=== PATIENT | male | born 1960 | race Caucasian/White ===

== ENCOUNTER 2019-05-31 07:47 | Observation (INO) ==
--- NOTE | 2019-05-24 14:27 | Anesthesiology Consultation ---
Date of Service May 24, 2019 Assessment & Plan (1) Encounter for pre-operative examination: Chart Review Chart Review: Acceptable Risk for Surgery and Patient NOT seen in Pre Admission Testing Consults Requested none History Surgery Operation Date: 05/31/19 07:00 Proposed Procedures p Laparoscopic Cholecystectomy - Jordan Gardner MD, FACS Height/Weight Height: 5 ft 9 in Weight: 83.915 kg Allergies Allergy/AdvReac Type Severity Reaction Status Date / Time procaine [From Novocain] Allergy Unknown Verified 05/03/19 07:13 Medications Home Medications Medication Instructions Recorded Confirmed Last Taken spironolactone 25 mg PO BID 01/29/19 05/03/19 01/29/19 07:00 spironolactone 100 mg PO BID 01/29/19 05/03/19 01/29/19 07:00 estradiol valerate 20 mg IM MONTHLY 05/03/19 05/03/19 Unknown estradiol valerate 20 mg IM UD 05/03/19 05/03/19 Unknown paroxetine HCl 20 mg PO DAILY 05/03/19 05/03/19 Unknown Past Medical History Medical History Alcohol use Back pain Borderline personality disorder Delusional disorder, erotomanic type Depressive disorder Gender dysphoria in adolescent and adult Nausea and vomiting after administration of anesthetic agent Past Surgical History Surgical History H/O right knee surgery Social History Smoking Status: Former smoker Hx Alcohol Use: Yes Testing Laboratory Results Laboratory Tests 01/29/19 01/29/19 17:54 17:54 WBC 9.61 Hgb 13.4 L Hct 38.1 L Plt Count 190 Sodium 135 L Potassium 4.2 Chloride 107 Carbon Dioxide 21 BUN 11 Creatinine 1.10 Glucose 102 H Electrocardiogram Date: 01/29/19 Findings: + NSR @ and + RBBB Chest X-Ray Date: 01/29/19 Findings: + NAD
--- NOTE | 2019-05-31 06:13 | History & Physical Report ---
Date of Service May 31, 2019 Assessment & Plan (1) Chronic cholecystitis with calculus: Patient is for laparoscopic cholecystectomy [facility] Observation History of Present Illness Primary Care Provider: SANIYA Laird Patient is for evaluation of gallbladder disease He is a transgender male goes by Darby Was seen in the emergency room abdominal pain nausea He was found with standard gallbladder multiple gallstones Allergies Allergy/AdvReac Type Severity Reaction Status Date / Time procaine [From Novocain] Allergy Unknown Verified 05/03/19 07:13 Home Medications Home Medications Medication Instructions Recorded Confirmed Type spironolactone 25 mg PO BID 01/29/19 05/03/19 History spironolactone 100 mg PO BID 01/29/19 05/03/19 History estradiol valerate 20 mg IM MONTHLY 05/03/19 05/03/19 History estradiol valerate 20 mg IM UD 05/03/19 05/03/19 History paroxetine HCl 20 mg PO DAILY 05/03/19 05/03/19 History Past Med/Surg History Medical History Alcohol use Back pain Borderline personality disorder Delusional disorder, erotomanic type Depressive disorder Gender dysphoria in adolescent and adult Nausea and vomiting after administration of anesthetic agent Surgical History H/O right knee surgery Social History 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 Current Living Situation Comment: [facility] Smoking Status: Former smoker Tobacco Cessation Education Requested by Patient: No Hx Alcohol Use: Yes Review of Systems All systems reviewed & are unremarkable except as noted in HPI & below Physical Exam Constitutional: well developed and well nourished; no acute distress Eyes: + anicteric sclerae Respiratory: normal respiratory effort; no respiratory distress Cardiovascular: Rate/Rhythm: regular rate Gastrointestinal (Abdomen): Percussion/Palpation: abdomen soft Musculoskeletal: Gait: normal gait Skin: no rashes, warm and dry Neurologic: awake Psychiatric: Orientation: alert
[~2019-05-31 07:47] MED LIST: LR 15ML/HR IV SCH; cefUROXime 1,500 MG in DEXTROSE 5% 100 ML IV SCH
[2019-05-31] MEDS ORDERED: LIDOCAINE HCL 2% 2 ML VIAL/AMP(20MG/ML) INFIL ONE (08:40)
[2019-05-31] MEDS ORDERED: CISATRACURIUM BESYLATE IV SOLN 2 MG/ML 10 ML VIAL IV ONE (08:40)
[2019-05-31] MEDS ORDERED: PROPOFOL IV EMULSION 10 MG/ML 20 ML VIAL IV ONE (08:40)
[2019-05-31] MEDS ORDERED: MIDAZOLAM HCL 1 MG/ML 2ML VIAL ONE (08:40)
[2019-05-31] MEDS ORDERED: fentaNYL citrate 100 MCG/2 ML VIAL ONE ×2 (08:40)
[2019-05-31] MEDS ORDERED: DEXAMETHASONE SOD INJ 4 MG/ML VIAL ONE (08:41)
[2019-05-31] MEDS ORDERED: ONDANSETRON INJ 2 MG/ML 2 ML VIAL ONE (08:41)
[2019-05-31] MEDS ORDERED: PROMETHAZINE HCL 12.5 MG in SODIUM CHLORIDE 0.9% 50 ML IV PRN ×2 (09:12→12:38)
[2019-05-31] MEDS ORDERED: FLUMAZENIL 0.1 MG/1 ML 10 ML VIAL IV PRN (09:12)
[2019-05-31] MEDS ORDERED: LABETALOL HCL IV 5 MG/ML 20ML IV PRN (09:12)
[2019-05-31] MEDS ORDERED: ATROPINE SULFATE 0.1 MG/ML 10ML SYR IV PRN (09:12)
[2019-05-31] MEDS ORDERED: HYDROmorphone INJ 1 MG/ML SYRINGE IV PRN (09:12)
[2019-05-31] MEDS ORDERED: ONDANSETRON INJ 2 MG/ML 2 ML VIAL IV PRN ×2 (09:12→12:38)
[2019-05-31] MEDS ORDERED: NALOXONE HCL 0.4 MG/1 ML VIAL/CARP IV PRN (09:12)
[2019-05-31] MEDS ORDERED: ePHEDrine sulfate 50 MG/ML AMP IV PRN (09:12)
[2019-05-31] MEDS ORDERED: BUPIVACAINE 0.5 % 5 MG/1 ML MPF 30ML VIAL ONE (09:25)
[2019-05-31] MEDS ORDERED: ACETAMINOPHEN 1000 MG/100 ML IV IV ONE (09:33)
[2019-05-31] MEDS ORDERED: GLYCOPYRROLATE 0.2 MG/ML VIAL ONE (10:14)
[2019-05-31] MEDS ORDERED: NEOSTIGMINE METHYLSULFATE 5 MG/5 ML SYR ONE (10:14)
[2019-05-31] MEDS ORDERED: LABETALOL HCL IV 5 MG/ML 20ML IV ONE (10:50)
[2019-05-31] MEDS ORDERED: ACETAMINOPHEN 1,000 MG/100 ML VIAL IV ONE (11:08)
--- NOTE | 2019-05-31 11:08 | Post Operative Brief Note ---
PG Immediate Post Op with CF Date of Surgery May 31, 2019 Pre & Post Diagnosis Operation Date: 05/31/19 09:40 Pre-Op Diagnosis: Chronic Cholecystitis Post-Op Diagnosis: Chronic Cholecystitis I identified the patient and participated in the time-out.: Yes Procedure Operation Date: 05/31/19 09:40 Actual Procedures p Laparoscopic Cholecystectomy(Not Applicable) - Jordan Gardner MD, FACS Surgeon Jordan Gardner MD, FACS Financial Analysis Manager Dov Bran Estimated Blood Loss 20 Findings Consistent with Post-Op Diagnosis Specimens Specimen Description: A. Gallbladder
[2019-05-31] MEDS ORDERED: PIPERACILL/TAZOBAC CONSULT ACTIVE PRN (11:16)
[2019-05-31] MEDS: fentaNYL citrate 100 MCG/2 ML VIAL IV PRN ×4 (11:43→11:58)
--- NOTE | 2019-05-31 12:08 | Anesthesiology Progress Note ---
Date of Service May 31, 2019 Anesthesia Post Procedure Vital Signs Vital Signs: Temp Pulse Pulse Resp BP Pulse Ox 05/31/19 12:00 36.1 C L 59 L 12 127/76 94 05/31/19 11:50 61 14 120/92 96 05/31/19 11:40 62 17 140/79 97 05/31/19 11:30 67 14 117/64 100 05/31/19 11:21 36.2 C L 74 14 110/70 97 05/31/19 08:49 36.7 C 63 18 118/76 100 Pain Intensity Abdomen: Pain Intensity: 4 Transfer of Care Handoff Completed per policy Notes Mental Status: alert / awake / arousable Patient Amnestic to Procedure: Yes Nausea / Vomiting: adequately controlled Pain: adequately controlled Airway Patency, RR, SpO2: stable & adequate BP & HR: stable & adequate Hydration State: stable & adequate Anesthetic Complications: no major complications apparent
--- NOTE | 2019-05-31 12:34 | Operative Report ---
DATE OF OPERATION: 05/31/2019 ADDENDUM OPERATION: Laparoscopic cholecystectomy. MANUFACTURING ASSEMBLER: Rajwinder Good. My construction project assistant helped with prepping, draping, removal of the gallbladder and closure of the wounds. I attest to the content of the Intraoperative Record and any orders documented therein. Any exception s are noted below.
--- NOTE | 2019-05-31 12:35 | Operative Report ---
DATE OF OPERATION: 05/31/2019 NAME OF OPERATION: Laparoscopic cholecystectomy. PREOPERATIVE DIAGNOSIS: Chronic cholecystitis. POSTOPERATIVE DIAGNOSIS: Chronic cholecystitis. STAFF SURGEON: Jordan Gardner MD. C CONSULTANT: Rajwinder Good. ANESTHESIA: General. DESCRIPTION OF PROCEDURE: The patient was brought in the operating room and placed on the operating table in supine position. His abdomen was prepped and draped in usual fashion. Pneumatic stockings, orogastric tube were placed. 0.5% plain Marcaine was used to anesthetize all incisions. Incision was made just above the umbilicus, carrying dissection down to the fascia, placing a Veress needle producing pneumoperitoneum. An 11 mm port was placed at this level and under visualization, three 5 mm ports were placed, 1 cephalad and 2 laterally. Gallbladder was very distended. It was difficult to grasp. I did attempt to aspirate the bile; however, it was very thick. The patient had some very small gallstones, 2 of which were aspirated. The site was grasped and then the gallbladder was retracted. Dissection carried out to the marvin hepatis, identifying the cystic duct and cystic artery. His anatomy was a little bit unusual. His cyst duct and artery were very close together. I was able to clip these and transect them, and the gallbladder was dissected away from the liver bed. There was chronic inflammation and scarring consistent with chronic cholecystitis. The Endobag was placed into the abdomen to recover several larger gallstones. The gallbladder was placed into the Endobag. After appropriate irrigation and hemostasis, the Endobag was removed through the umbilical site. I did have to increase the size of the skin incision and the fascial incision because of the size of the gallbladder in that it was full of stones. At this point, the fascia at the umbilicus was closed using interrupted 0 PDS suture. Skin was reapproximated using 5-0 Prolene suture at the umbilicus. The other sites were closed using subcuticular 4-0 Monocryl and Steri-Strips. Dressings applied and patient was transferred to recovery room in stable condition. I attest to the content of the Intraoperative Record and any orders documented therein. Any exception s are noted below.
[2019-05-31] MEDS ORDERED: ESTRADIOL VALERATE IM SCH (12:38)
[2019-05-31] MEDS ORDERED: HYDROCODONE/ACETAMOPHEN 5/325MG TAB PO PRN (12:38)
[2019-05-31] MEDS ORDERED: PROMETHAZINE HCL 25 MG in SODIUM CHLORIDE 0.9% 50 ML IV PRN (12:38)
[2019-05-31] MEDS ORDERED: MoRPHine SULFATE 2 MG/ML CARP IV PRN ×2 (12:38)
[2019-05-31] MEDS ORDERED: ACETAMINOPHEN 325 MG TAB PO PRN (12:38)
[2019-05-31] MEDS ORDERED: IBUPROFEN 600 MG TAB PO PRN (12:38)
[2019-05-31] MEDS ORDERED: SODIUM CHLORIDE 0.9% 1000ML 1,000 ML IV SCH (14:00)
[2019-05-31] MEDS ORDERED: PIPERACILLIN/TAZOBACTAM 3.375 GM in DEXTROSE 5% 100 ML IV ONE (14:00)
[2019-05-31 14:05] LABS: Creatinine Clr Calc Pharmacy 80.7 ml/min; Est GFR (African American) 95.3; Est GFR (Non-African American) 82.2
[2019-05-31] MEDS ORDERED: ESMOLOL HCL INJ 10 MG/ML 10ML VIAL IV ONE (14:26)
--- NOTE | 2019-05-31 15:13 | Hospitalist Consultation ---
Date of Consultation May 31, 2019 Assessment & Plan (1) Chronic cholecystitis with calculus: S/p lap andrés with Dr. Gardner on 05/31. - Pain control per primary team (2) Gender dysphoria in adolescent and adult: Actually on spironolactone 150mg PO BID per patient. Gets her hormone injections on the and , so no need for any inpatient. - Adjusted meds Given medical stability, Hospital Medicine team will sign off. Please re-consult with any questions or concerns. Thank you for letting us assist in the care of this patient! History of Present Illness Attending Physician: Jordan Gardner MD, FACS History of Present Illness 59yo transgender F with no major medical history who presents as a medical consult after a lap andrés with Dr. Gardner. He reports some no nausea, but does have some abdominal pain. Otherwise no major medical symptoms. Allergies Allergy/AdvReac Type Severity Reaction Status Date / Time procaine [From Novocain] Allergy Unknown Verified 05/31/19 08:27 Home Medications Home Medications Medication Instructions Recorded Confirmed Type spironolactone 25 mg PO BID 01/29/19 05/31/19 History spironolactone 100 mg PO BID 01/29/19 05/31/19 History estradiol valerate 20 mg IM MONTHLY 05/03/19 05/31/19 History estradiol valerate 20 mg IM UD 05/03/19 05/31/19 History paroxetine HCl 20 mg PO DAILY 05/03/19 05/31/19 History hydrocodone-acetaminophen [[place]] 1 - 2 tab PO Q6H PRN #30 tab 05/31/19 Rx Patient History Medical History Alcohol use Back pain Borderline personality disorder Delusional disorder, erotomanic type Depressive disorder Gender dysphoria in adolescent and adult Nausea and vomiting after administration of anesthetic agent Surgical History H/O right knee surgery (05/31/19) S/P laparoscopic cholecystectomy Laparoscopic cholecystectomy. Dr. 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 Current Living Situation Comment: [facility] Smoking Status: Former smoker Tobacco Cessation Education Requested by Patient: No Hx Alcohol Use: Yes Review of Systems Constitutional: no fever, no chills and no sweats Eyes: no diplopia Ear, Nose, Mouth, Throat: no ear trauma, no nasal discharge and no dental pain Respiratory: no cough, no chest congestion and no dyspnea Cardiovascular: no chest pain, no dyspnea on exertion, no palpitations and no syncope Gastrointestinal: no abdominal pain, no belching, no constipation, no diarrhea/loose stools, no blood in stools and no melena Musculoskeletal: no back pain, no joint pain and no muscle weakness Integumentary: no rash, no skin ulcer and no erythema Neurologic: no generalized weakness, no loss of sensation, no numbness and no paresthesia Psychiatric: no depression and no anxiety Endocrine: no fatigue, no polydipsia and no polyphagia Physical Exam Constitutional: WD/WN, vitals as above Eyes: EOM intact bilaterally; no conjunctival abnormality ENMT: external ear and nose normal, oropharynx normal Neck: trachea midline, no thyromegaly normal visual inspection Respiratory: normal respiratory effort, lungs clear to auscultation no respiratory distress Cardiovascular: RRR, no murmur, no edema Gastrointestinal (Abdomen): Inspection/Auscultation: abdomen normal to inspection; abdomen not distended Percussion/Palpation: + abdomen tender and abdomen soft; no guarding and abdomen not rigid Musculoskeletal: no cyanosis or clubbing, extremities motor strength 5/5 Skin: no rashes, warm and dry Neurologic: moves all extremities and awake Psychiatric: Orientation: alert, oriented to person and cooperative Results & Data Vital Signs (Past 12 Hours) Vital Signs Temp Pulse Pulse Resp BP Pulse Ox 05/31/19 14:30 59 L 16 116/66 96 05/31/19 13:00 76 16 126/78 96 05/31/19 12:10 62 16 123/75 93 05/31/19 12:00 36.1 C L 59 L 12 127/76 94 05/31/19 11:50 61 14 120/92 96 05/31/19 11:40 62 17 140/79 97 05/31/19 11:30 67 14 117/64 100 05/31/19 11:21 36.2 C L 74 14 110/70 97 05/31/19 08:49 36.7 C 63 18 118/76 100 PG Care Time/CCT Total # of Minutes Spent Total Time Spent with Patient: Total time spent is greater than 50% in coordination of care (as documented) at patient's floor/unit and/or counseling patient:
[2019-05-31] MEDS: SPIRONOLACTONE 100 MG TAB PO SCH (16:56)
[2019-05-31] MEDS: PIPERACILLIN/TAZOBACTAM 3.375 GM in DEXTROSE 5% 100 ML IV SCH (19:38)
[2019-05-31] MEDS: DOCUSATE SODIUM/SENNA 50/8.6MG TAB PO SCH (19:39)
[2019-05-31] MEDS: HYDROCODONE/ACETAMOPHEN 5/325MG TAB PO PRN ×2 (19:42→23:54)
[2019-05-31] MEDS ORDERED: SPIRONOLACTONE 25 MG TAB PO SCH (21:00)
[2019-05-31] MEDS ORDERED: SPIRONOLACTONE 100 MG TAB PO SCH (21:00)
[2019-06-01 00:16] VITALS: TEMP 97.9
[2019-06-01 03:36] VITALS: PULSE 70; O2SAT 96
[2019-06-01] MEDS: PIPERACILLIN/TAZOBACTAM 3.375 GM in DEXTROSE 5% 100 ML IV SCH (03:56)
[2019-06-01 05:48] LABS: Eosinophils # (auto) 0.03 K/uL (0-0.5); Eosinophils % (auto) 0.2 %; Hematocrit (blood only) 37.8 % (42-52); Hemoglobin 12.8 g/dL (14.0-18.0); Immature Granulocytes # (auto) 0.04 K/uL (0.00-0.02); Immature Granulocytes % (auto) 0.3 %; Lymphocytes # (auto) 1.28 K/uL (1.2-3.4); Lymphocytes % (auto) 9.8 %; Mean Corpuscular Hemoglobin 32.6 pg (25-34); Mean Corpuscular Hgb Conc 33.9 g/dL (32-36); Mean Corpuscular Volume 96.2 fL (80-100); Mean Platelet Volume 9.6 fL (7.4-10.4); Monocytes # (auto) 0.91 K/uL (0.11-0.59); Neutrophils # (auto) 10.82 K/uL (1.4-6.5); Neutrophils % (auto) 82.7 %; Platelet Count 280 K/uL (130-400); RDW Coefficient of Variation 11.9 % (11.5-14.5); RDW Standard Deviation 42.1 fL (36.4-46.3); Red Blood Count 3.93 M/uL (4.7-6.1); White Blood Count 13.08 K/uL (4.8-10.8)
[2019-06-01] MEDS: HYDROCODONE/ACETAMOPHEN 5/325MG TAB PO PRN (06:01)
[2019-06-01 06:17] LABS: Alanine Aminotransferase 29 U/L (12-78); Albumin Level 2.9 gm/dl (3.4-5.0); Aspartate Aminotransferase 23 U/L (15-37); BUN Creatinine Ratio 11.1 (10-20); Bilirubin Direct < 0.1 mg/dl (0-0.2); Blood Urea Nitrogen 12 mg/dl (7-18); Calcium 8.6 mg/dl (8.5-10.1); Carbon Dioxide 25 mmol/L (21-32); Chloride 106 mmol/L (98-107); Creatinine Clr Calc Pharmacy 76.9 ml/min; Est GFR (African American) 89.9; Est GFR (Non-African American) 77.5; Glucose 127 mg/dl (70-99); Potassium 3.9 mmol/L (3.5-5.1); Sodium 139 mmol/L (136-145)
[2019-06-01 06:19] LABS: Albumin Globulin Ratio 0.8 (0.9-2); Alkaline Phosphatase 51 U/L (45-117); Bilirubin,Total 0.2 mg/dl (0.2-1); Globulin 3.6 gm/dl (2.5-4.0); Phosphorus 2.9 mg/dl (2.5-4.9); Total Protein 6.5 gm/dl (6.4-8.2)
--- NOTE | 2019-06-01 06:22 | Discharge Summary ---
PRINCIPAL DIAGNOSIS: Chronic cholecystitis. PROCEDURES: The patient underwent laparoscopic cholecystectomy. HISTORY OF PRESENT ILLNESS: The patient is a 59-year-old male who has a history of a biliary colic and probable chronic cholecystitis with multiple stones in the gallbladder, presenting to the Emergency Room. HOSPITAL COURSE: The patient was brought into the hospital on 05/31/2019 where he underwent laparoscopic cholecystectomy showing significant chronic cholecystitis with gallbladder full of sludge and stones. The patient tolerated the procedure very well and is felt stable for discharge home, which was back to the correctional facility today to be continued on his oral antibiotics for tooth abscess he had preoperatively.
[2019-06-01] MEDS: SPIRONOLACTONE 100 MG TAB PO SCH (07:33)
[2019-06-01] MEDS: DOCUSATE SODIUM/SENNA 50/8.6MG TAB PO SCH (07:35)
[2019-06-01 07:37] VITALS: BP 119/73
--- NOTE | 2019-06-01 08:10 | Anesthesiology Progress Note ---
Date of Service June 01, 2019 Anesthesia Post Procedure Vital Signs Vital Signs: Temp Pulse Pulse Resp BP BP Pulse Ox 06/01/19 07:36 36.6 C 59 L 70 18 119/73 121/63 96 06/01/19 07:26 36.8 C 70 16 107/56 L 95 06/01/19 03:35 36.6 C 70 18 121/63 96 05/31/19 23:00 36.6 C 71 16 119/73 95 05/31/19 18:33 36.7 C 70 17 107/70 93 05/31/19 15:25 36.6 C 64 17 108/61 96 05/31/19 14:30 59 L 16 116/66 96 05/31/19 13:00 76 16 126/78 96 05/31/19 12:10 62 16 123/75 93 05/31/19 12:00 36.1 C L 59 L 12 127/76 94 05/31/19 11:50 61 14 120/92 96 05/31/19 11:40 62 17 140/79 97 05/31/19 11:30 67 14 117/64 100 05/31/19 11:21 36.2 C L 74 14 110/70 97 05/31/19 08:49 36.7 C 63 18 118/76 100 Pain Intensity Abdomen: Pain Intensity: 5 Notes Mental Status: alert / awake / arousable and participated in evaluation Patient Amnestic to Procedure: Yes Nausea / Vomiting: adequately controlled Pain: adequately controlled Airway Patency, RR, SpO2: stable & adequate BP & HR: stable & adequate Hydration State: stable & adequate Anesthetic Complications: no major complications apparent and Pt Satisfied with anesthetic care
[2019-06-01] MEDS ORDERED: INFLUENZA ADMINISTRATION CHARGE ONE (08:45)
[2019-06-01] MEDS ORDERED: INFLUENZA VIRUS QUAD VACCINE 0.5 ML SYR IM ONE (08:45)
[2019-06-01] MEDS ORDERED: PARoxetine HCl 20 MG TAB PO SCH (09:00)
== END 2019-06-01 09:18 ==
LOC: ASU 07:47 → 3N 07:47